=== PATIENT | female | born 2000 | race Caucasian/White ===

== ENCOUNTER 2021-03-01 01:25 | Outpatient (CLI) | payer OTHER ==
[2021-03-01 01:50] VITALS: BP 114/55
== END 2021-03-01 06:10 | disposition home or self-care (01) ==
LOC: M LDO 01:25
PROVIDERS: ATTEND Advanced Practice Midwife
DX: O26.892 Other specified pregnancy related conditions, second trimester (principal); R10.2 Pelvic and perineal pain; Z3A.23 23 weeks gestation of pregnancy; O26.852 Spotting complicating pregnancy, second trimester; O47.02 False labor before 37 completed weeks of gestation, second trimester

== ENCOUNTER 2021-04-28 21:36 | Outpatient (CLI) | payer OTHER ==
[~2021-04-28] VITALS: Ht 170.2 cm; Wt 107.0 kg
[2021-04-29 00:27] VITALS: BP 106/52
[2021-04-29 01:27] VITALS: BP 114/65
== END 2021-04-29 05:25 | disposition home or self-care (01) ==
LOC: M LDO 21:36
PROVIDERS: ATTEND Obstetrics & Gynecology
DX: O9A.513 Psychological abuse complicating pregnancy, third trimester (principal); Z3A.31 31 weeks gestation of pregnancy; O09.33 Supervision of pregnancy with insufficient antenatal care, third trimester